=== PATIENT | male | born 1995 | race Two or more races ===

== ENCOUNTER 2017-03-25 09:25 | Emergency (ER) | payer OTHER ==
[~2017-03-25] VITALS: Ht 180.3 cm; Wt 122.5 kg
[2017-03-25 09:43] VITALS: BP 152/94
[2017-03-25] MEDS ORDERED: LIDOCAINE 1% / SOD BICARB 8.4% 20 ML VIAL. IJ ONE (10:15)
[2017-03-25] MEDS ORDERED: DIPHTH,PERTUSS(ACELL),TET TOX 0.5 ML DISP.SYRIN. VAX IM ONE (10:15)
[2017-03-25] MEDS ORDERED: HYDR-971 PO (11:13)
[2017-03-25] MEDS ORDERED: AMOX1TAB61 PO (11:13)
--- NOTE | 2017-03-25 11:14 | PHYS DOC ---
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 He does believe he may have gotten caught on a nail as well. He does have a 2 cm laceration on the right palm of the hand with a small laceration that is 0.5 cm. Bleeding is currently controlled tetanus immunization is not up- to-date at the current time. Patient is right-hand dominant. Review of Systems Review of Systems Constitutional: Denies fever or chills [] Eyes: Denies change in visual acuity, redness, or eye pain [] HENT: Denies nasal congestion or sore throat [] Respiratory: Denies cough or shortness of breath [] Cardiovascular: No additional information not addressed in HPI [] GI: Denies abdominal pain, nausea, vomiting, bloody stools or diarrhea [] : Denies dysuria or hematuria [] Musculoskeletal: Denies back pain or joint pain [] Integument: Denies rash or skin lesions. Laceration to the right hand Neurologic: Denies headache, focal weakness or sensory changes [] Endocrine: Denies polyuria or polydipsia [] Current Medications Current Medications Current Medications Medications (Trade) Dose Ordered Sig/Gil Start Time Stop Time Status Last Admin Dose Admin Diphtheria/ Tetanus/Acell Pertussis (Boostrix) 0.5 ml ONCE ONCE 03/25/17 10:15 03/25/17 10:16 DC 03/25/17 10:56 0.5 ML Lidocaine/Sodium Bicarbonate (Buffered Lidocaine 1%) 20 ml 1X ONCE 03/25/17 10:15 03/25/17 10:16 DC 03/25/17 10:54 20 ML Allergies Allergies Allergies Coded Allergies Type Severity Reaction Last Updated Verified No Known Drug Allergies 03/25/17 No Physical Exam Physical Exam Constitutional: Well developed, well nourished, no acute distress, non-toxic appearance. [] HENT: Normocephalic, atraumatic, bilateral external ears normal, oropharynx moist, no oral exudates, nose normal. [] Eyes: PERRLA, EOMI, conjunctiva normal, no discharge. [] Neck: Normal range of motion, no tenderness, supple, no stridor. [] Cardiovascular:Heart rate regular rhythm Lungs & Thorax: no respiratory distress noted Skin: Warm, dry, no erythema, no rash. Laceration 3 cm to the right hand and a second laceration 0.5 cm. Patient with full ROM of the hand. cap refill brisk < 2 seconds. Extremities: No tenderness, no cyanosis, no clubbing, ROM intact, no edema. [] Neurologic: Alert and oriented X 3, normal motor function, normal sensory function, no focal deficits noted. [] Psychologic: Affect normal, judgement normal, mood normal. [] Current Patient Data Vital Signs Vital Signs Date Time Temp Pulse Resp B/P (MAP) Pulse Ox O2 Delivery O2 Flow Rate FiO2 03/25/17 09:43 98.5 79 16 152/94 (113) 100 Room Air 98.5 EKG EKG [] Radiology/Procedures Radiology/Procedures [] Course & Med Decision Making Course & Med Decision Making Pertinent Labs and Imaging studies reviewed. (See chart for details) X-rays negative for foreign body or bony abnormality per Dr Dennis. Patient was sutured. Patient will be placed on Augmentin at discharge. His provided with discharge instructions to keep the area clean and dry. Clean the site twice a day with soap and water and apply antibiotic ointment. Signs and symptoms of infection: Redness, warmth, tenderness or any yellow/greenish drainage and comes from the site he would need to follow-up with work comp physician immediately. Sutures out in the next 7-10 days. Patient was encouraged to avoid using the right hand to allow for sutures to heal. Signs and symptoms to return back to emergency department has been provided. Will be provided with [place] for severe pain and discomfort he was instructed this medication will cause drowsiness do not take if he needs to be alert and oriented. [] Dragon Disclaimer Dragon Disclaimer This electronic medical record was generated, in whole or in part, using a voice recognition dictation system. Departure Departure Impression: Primary Impression: Laceration of hand, right Disposition: HOME, SELF-CARE Condition: STABLE Referrals: NO PCP (PCP) Patient Instructions: Laceration Care, Adult, [id number] Additional Instructions: Activity as tolerated. Medications as prescribed. Hydrocodone for severe pain and discomfort this medication will cause drowsiness do not take any be alert and oriented. Ice packs on 20 minutes off 20 minutes several times a day. Elevation as much as possible. Keep the area clean and dry. Clean the site twice daily with soap and water and apply antibiotic ointment to the area. Watch for signs and symptoms of infection: Redness, warmth, tenderness or any yellow/greenish drainage of a come from the site if this should occur follow-up to primary care physician immediately. Otherwise follow-up with your work comp physician as instructed for suture removal in 7-10 days. Return back to emergency prior signs symptoms of become worse. Scripts Hydrocodone/Apap 5-325 (NORCO 5-325 TABLET) 1 Each Tablet 1 TAB PO PRN Q6HRS Y for PAIN, #10 TAB 0 Refills Prov: MAYNOR MORILLO APRN 03/25/17 Amoxicillin/Potassium Clav (AUGMENTIN 875-125 TABLET) 1 Each Tablet 1 TAB PO BID, #20 TAB Prov: MAYNOR MORILLO APRN 03/25/17 Laceration/Wound Repair Laceration/Wound Repair : Wound Location: upper extremity Wound's Depth, Shape: superficial Wound Length (cm): 3 Wound Explored: clean Irrigated w/ Saline (ccs): 100 Betadine Prep?: Yes Volume Anesthetic (ccs): 8 Wound Debrided: minimal Wound Repaired With: sutures Suture Size/Type: 3:0, nylon Number of Sutures: 7 Layer Closure?: Yes Progress Site was irrigated with 100 mL of normal saline. 1% buffered lidocaine with approximately 8 mL injected into the site. 3-0 nylon was used to suture the area with 7 wrapped it sutures placed. A shunt tolerated procedure well. Laceration/Wound Repair Laceration/Wound Repair : Wound Location: upper extremity Wound's Depth, Shape: superficial Wound Length (cm): 0 Wound Explored: clean Wound Repaired With: sutures Suture Size/Type: 3:0, nylon Progress This area was irrigated with the same 100 mL with the first laceration. Total of 8 mL of 1% buffered lidocaine was injected into the area. 2 lifted sutures were placed above 3-0 nylon. Problem Qualifiers Primary Impression: Laceration of hand, right Encounter type: initial encounter Foreign body presence: unspecified Qualified Codes: S61.411A - Laceration without foreign body of right hand, initial encounter MAYNOR MORILLO APRN Mar 25, 2017 11:14
--- NOTE | 2017-03-25 15:08 | RAD ---
Indication laceration to the anterior surface of the right hand over the first metacarpal. AP oblique and lateral views of the right hand were obtained. No bony abnormality is seen. No discrete radiopaque foreign body is seen although on the lateral view, on the flexor side of the hand, there are punctate densities which could represent debris in the soft tissues. Clinical correlation and targeted physical examination advised
== END 2017-03-25 11:19 | disposition home or self-care (01) ==
LOC: ER 09:25
DX: S61.411A Laceration without foreign body of right hand, initial encounter (principal); Y28.8XXA Contact with other sharp object, undetermined intent, initial encounter; Y93.89 Activity, other specified; Y99.8 Other external cause status; Y92.89 Other specified places as the place of occurrence of the external cause
CPT/HCPCS: 12002; 73130; 90471; 90715; 99284-25